=== PATIENT | male | born 1935 | race Caucasian/White ===

== ENCOUNTER 2016-04-10 08:41 | Inpatient (IN) | payer MEDICARE ==
[2016-04-10 08:54] VITALS: BMI 30.8
--- NOTE | 2016-04-10 09:07 | EDPRACDOC ---
<Rocky Reed - Last Filed: 04/10/16 12:13> - General Information Information Source: Patient - History of Present Illness Onset: 2 days HPI: PT COMPLAINS OF BRBPR X 3 DAYS, "SORENESS" LEFT SIDE OF ABDOMEN, DIARRHEA, NO FEVER OR CHILLS, NO N/V/D, NO CP OR SOBR, PT STATES HE HAD DIVERTICULITIS A COUPLE OF YEARS AGO BUT THAT WAS MORE PAINFUL THAN HIS CURRENT SYMPTOMS. Bleeding Duration: Reports: Intermittent Bleeding Description: Reports: Spontaneous Recent Use Of: Reports: None Relevant History: Reports: None Prehospital Care: Reports: None Pain Severity: Mild Amount of Blood: Reports: Cups Vomitus: Reports: None Stools: Reports: Bright Red Blood, Blood on Tissue Paper Associated Signs and Symptoms: Reports: Abdominal Pain, Diarrhea <Silas Mederos - Last Filed: 04/10/16 12:16> - General Information Chief Complaint: Bleeding (Rectal &/or other) Stated Complaint: RECTAL BLEEDING Time Seen by Provider: 04/10/16 08:56 Home Medications: Home Medications Allopurinol 300 mg PO DAILY 07/11/14 Aspirin (OrangeEnteric Coated) [Ecotrin] 325 mg PO DAILY 07/11/14 Docosahexanoic Acid/Epa [Fish Oil Softgel] 1 cap PO DAILY 07/11/14 Losartan Potassium [Cozaar] 25 mg PO BID 07/11/14 Multivitamin [Multivitamins] 1 cap PO DAILY 07/11/14 Psyllium [Metamucil] 1 each PO DAILY 07/11/14 Simvastatin [Zocor] 20 mg PO DAILY 07/11/14 Omeprazole [Prilosec] 20 mg PO DAILY 07/14/15 Hypromellose/Pf [Retaine Hpmc 0.3% Eye Drops] 1 drop OU DAILY 04/10/16 Mineral Oil/Petrolatum,White [Retaine Pm Eye Ointment] 1 applic OU QHS 04/10/16 Allergies/Adverse Reactions: Allergies Allergy/AdvReac Type Severity Reaction Status Date / Time lisinopril Allergy Severe Angioedema* Verified 04/10/16 08:53 ED Past Medical History - History Reviewed Yes Nurses notes reviewed and agree except as marked - Patient Medical History Cardiac History: Reports: Hypertension, Hypercholesterolemia Respiratory History: Reports: COPD GI/ History: Reports: Kidney Stones (in twenties) Musculoskeletal History: Reports: Arthritis (knees) Psychological History: Denies: Depression Systemic History: Reports: Cancer (SKIN)Comment Only: Diabetes ("borderline") - Family Medical History Reports: Hypertension (Mother and Father), Stroke (Father), Cardiac Disorders ( Mother). Denies: Diabetes, Cancer - Social Medical History Smoking Status: Former smoker ETOH: None Substance Abuse: None <Silas Mederos - Last Filed: 04/10/16 12:16> EDM Review of Systems - Review of Systems Constitutional: negative: Chills, Fever, Fatigue, Weakness Eyes: negative: Blurred Vision, Double Vision Ears: negative: Drainage Throat: negative: Pain Nose: negative: Congestion, Discharge Respiratory: negative: Cough, Shortness of Breath, Wheezing Cardiovascular: negative: Chest Pain, Palpitations Gastrointestinal: Diarrhea, Pain, Other (BRBPR). negative: Nausea, Vomiting Genitourinary: negative: Dysuria, Frequency Neurological: negative: Dizziness, Headache, Numbness, Weakness Musculoskeletal: No Symptoms Reported Integumentary: No Symptoms Reported <Silas Mederos - Last Filed: 04/10/16 12:16> - Physical Exam Last recorded Vital Signs: Last Vital Signs Temp 98.4 F 04/10/16 12:08 Pulse 60 04/10/16 12:08 Resp 18 04/10/16 12:08 BP 143/74 04/10/16 12:08 Pulse Ox 96 04/10/16 12:08 Oxygen Pulse Oxygen Saturation 96 O2 Device Room Air Oxygen Flow Rate Fraction of Inspired Oxygen ( FIO2) <Rocky Reed - Last Filed: 04/10/16 12:13> - Physical Exam Constitutional: Alert (Awake), No apparent distress Oriented to: Time, Person, Place Last recorded Vital Signs: Last Vital Signs Temp 98.2 F 04/10/16 08:50 Pulse 84 04/10/16 08:50 Resp 20 04/10/16 08:50 BP 185/86 H 04/10/16 08:51 Pulse Ox 95 04/10/16 08:50 Oxygen Pulse Oxygen Saturation 95 O2 Device Room Air Oxygen Flow Rate Fraction of Inspired Oxygen ( FIO2) - HEENT Head: Normal ( normocephalic) Eye Exam: Normal (PERRL, EOMI, Sclera white) Oropharynx: Normal (Pharynx:Moist without exudate,Gums-no swelling) Tympanic Membrane: Normal ENT EAC: Normal TMJ: Normal Nose: No Symptoms Reported (septum midline) Neck: Normal (FROM, trachea at midline) - Respiratory/Cardiovascular Respiratory: Normal - CTA (BBS clear to auscultation without adventitious sounds ) Cardiovascular: Normal (RRR without murmur, gallop or rub) - GI Auscultation: Normal (NABS) Palpation: Normal (Soft,No rebound or guarding, non distended) Tenderness: Mild, LLQ. negative: Guarding, Rebound, Rigidity Felton's Sign: Negative Rectal Exam: Blood, Heme positive stool, Rectal Tone Stool: Gross Blood (MAROON STOOL) - Musculoskeletal Back: Normal (Non-Tender) Extremities: Normal (Normal tone, Pulses 2+ No cyanosis or edema, FROM) - Integumentary Skin: Normal, Warm, Dry Lymphatics: Normal (no adenopathy) - Neurologic Memory Impaired: Normal Motor Function: Normal (Normal tone, Pulses 2+ No cyanosis or edema, FROM) Cranial Nerve: Normal (CN II-X11 intact sensation, strength 5/5) Cerebellar: Normal Mood Description: Normal Perception: Normal <Silas Mederos - Last Filed: 04/10/16 12:16> - Results 04/10/16 09:08 04/10/16 09:08 WBC 9.6 xk/uL (3.8-10.8) 04/10/16 09:08 RBC 3.49 xM/uL (4.70-6.10) L 04/10/16 09:08 Hgb 10.8 g/dL (14.0-18.0) L 04/10/16 09:08 Hct 32.2 % (42-52) L 04/10/16 09:08 MCV 92 fL (80-94) 04/10/16 09:08 MCH 30.9 pg (27-32) 04/10/16 09:08 MCHC 33.5 g/dl (33-36) 04/10/16 09:08 RDW 13.7 % (11.5-14.5) 04/10/16 09:08 Plt Count 210 xk/uL (130-400) 04/10/16 09:08 MPV 7.1 fL (7.4-10.4) L 04/10/16 09:08 Neut % (Auto) 68.1 % (45-76) 04/10/16 09:08 Lymph % (Auto) 20.3 % (17-44) 04/10/16 09:08 [place] % (Auto) 8.6 % (3-10) 04/10/16 09:08 Eos % (Auto) 2.7 % (0-5) 04/10/16 09:08 Baso % (Auto) 0.3 % (0-2) 04/10/16 09:08 Absolute Neuts (auto) 6.53 xk/uL (1.7-8.2) 04/10/16 09:08 Absolute Lymphs (auto) 1.92 xk/uL (0.65-4.75) 04/10/16 09:08 PT 11.7 SEC (9.2-11.2) H 04/10/16 09:08 INR 1.1 04/10/16 09:08 APTT 26.2 SEC (22-35) 04/10/16 09:08 Sodium 141 mEq/L (137-146) 04/10/16 09:08 Potassium 3.9 mEq/L (3.5-5.1) 04/10/16 09:08 Chloride 106 mEq/L (98-107) 04/10/16 09:08 Carbon Dioxide 26 mMOL/L (22-33) 04/10/16 09:08 Anion Gap 13 mEq/L (8-16) 04/10/16 09:08 BUN 18 MG/DL (9-20) 04/10/16 09:08 Creatinine 0.90 MG/DL (0.66-1.25) 04/10/16 09:08 Estimated GFR (MDRD) > 60 mL/min (>=60) 04/10/16 09:08 Glucose 95 MG/DL (70-99) 04/10/16 09:08 Calculated Osmolality 273 MOs/Kg (270-290) 04/10/16 09:08 Calcium 9.0 MG/DL (8.4-10.2) 04/10/16 09:08 Corrected Calcium 9.4 MG/DL (8.4-10.2) 04/10/16 09:08 Total Bilirubin 0.5 MG/DL (0.2-1.3) 04/10/16 09:08 AST 24 IU/L (17-59) 04/10/16 09:08 ALT 30 IU/L (21-72) 04/10/16 09:08 Alkaline Phosphatase 75 IU/L (50-160) 04/10/16 09:08 Total Protein 6.4 G/DL (6.3-8.2) 04/10/16 09:08 Albumin 3.6 G/DL (3.5-5.0) 04/10/16 09:08 Lab Results 04/10/16 04/10/16 04/10/16 09:08 09:08 09:08 WBC 9.6 RBC 3.49 L Hgb 10.8 L Hct 32.2 L MCV 92 MCH 30.9 MCHC 33.5 RDW 13.7 Plt Count 210 MPV 7.1 L Neut % (Auto) 68.1 Lymph % (Auto) 20.3 [place] % (Auto) 8.6 Eos % (Auto) 2.7 Baso % (Auto) 0.3 Absolute Neuts (auto) 6.53 Absolute Lymphs (auto) 1.92 PT 11.7 H INR 1.1 APTT 26.2 Sodium 141 Potassium 3.9 Chloride 106 Carbon Dioxide 26 Anion Gap 13 BUN 18 Creatinine 0.90 Estimated GFR (MDRD) > 60 Glucose 95 Calculated Osmolality 273 Calcium 9.0 Corrected Calcium 9.4 Total Bilirubin 0.5 AST 24 ALT 30 Alkaline Phosphatase 75 Total Protein 6.4 Albumin 3.6 <Rocky Reed - Last Filed: 04/10/16 12:13> - Differential Diagnosis Diverticulosis, Esophagitis, Gastritis, Gastroenteritis, Inflammatory Bowel Dx - Re-evaluation Re-evaluation 1 Re-evaluation Time: 11:55 (UP AND AMBULATORY W/O DIFFICULTY) - Results 04/10/16 09:08 04/10/16 09:08 - Diagnostic Imaging CT ABD/PELVIS Image interpreted by: Radiologist CT ABDOMEN AND PELVIS WITH CONTRAST TECHNIQUE: Multidetector CT imaging of the abdomen and pelvis was performed using the standard protocol following bolus administration of intravenous contrast. CONTRAST: 80 mL Isovue 370 COMPARISON: 06/12/2014 FINDINGS: No consolidation or effusion in the visualized lung bases. The calcified granulomata are again seen in the spleen. The liver, gallbladder, adrenal glands, and pancreas are unremarkable. Subcentimeter hypodensity in the upper pole of the right kidney is unchanged and too small to characterize. Punctate nonobstructing left upper pole renal calculi are unchanged. There is no evidence of bowel obstruction. The appendix is unremarkable. Extensive diverticulosis is again seen involving the sigmoid and descending colon. Wall thickening involving the proximal sigmoid colon has increased from the prior study. Projecting posteroinferiorly from the proximal sigmoid colon is an inflamed diverticulum or contained perforation which is inseparable from the adjacent bladder dome and measures 2 cm in size. There is mild adjacent bladder wall thickening. This diverticulum was gas-filled on the prior study and also appeared adherent to the bladder wall but without significant inflammatory change. No gas is present in the bladder to clearly indicate a fistulous communication with the bladder lumen. Advanced atherosclerotic calcification is noted of the abdominal aorta and its major branch vessels. A circumaortic left renal vein is incidentally noted. No free fluid is seen. Chronic, mild enlargement of lymph nodes in the sigmoid mesial colon is again noted, measuring up to 7 mm in short axis. Advanced disc degeneration is present in the lower lumbar spine. IMPRESSION: 1. Sigmoid diverticulitis with an inflamed diverticulum or small contained perforation directly involving the bladder wall. 2. Nonobstructing left nephrolithiasis. - Additional Information DISCUSSED WITH DR REED, HE WILL SEE PT, DISCUSS WITH SURGERY <Silas Mederos - Last Filed: 04/10/16 12:16> - Departure Yes I personally saw and evaluated the patient. Disposition: Admit IP To This Hospital Education/Counseling Given To: Patient Education/Counseling Given Regarding: Diagnosis, Treatment, Prognosis Decision to Admit Time: 12:14 Decision to admit date: 04/10/16 Decision to admit: from ED - Physician Consulted Surgery Time Called: 12:14 Provider Called: Samuel Rodriguez Time Cath Lab Nurse Returned Call: 12:14 <Rocky Reed - Last Filed: 04/10/16 12:13> <Silas Mederos - Last Filed: 04/10/16 12:16> - Departure Condition: Stable Final Diagnosis: Acute diverticulitis, Perforated viscus Referrals: Glenn Moran MD [Primary Care Provider] - One Week
[2016-04-10] MEDS ORDERED: SODIUM CHLORIDE 0.9% 10 ML FLUSH FLUSH PRN (09:08)
[2016-04-10 09:22] LABS: AUTOMATED BASOPHIL 0.3 % (0-2); AUTOMATED EOSINOPHIL 2.7 % (0-5); AUTOMATED LYMPH 20.3 % (17-44); AUTOMATED MONOCYTE 8.6 % (3-10); AUTOMATED NEUTROPHIL 68.1 % (45-76); MPV 7.1 fL (7.4-10.4)
[2016-04-10 09:32] LABS: PARTIAL THROMB. TIME 26.2 SEC (22-35); PT-INR 1.1
[2016-04-10 09:36] LABS: BLOOD UREA NITROGEN 18 MG/DL (9-20); CALC CORRECTED 9.4 MG/DL (8.4-10.2); CALCULATED OSMOLALITY 273 MOs/Kg (270-290); CHLORIDE 106 mEq/L (98-107); GLUCOSE 95 MG/DL (70-99); SODIUM LEVEL 141 mEq/L (137-146); TOTAL PROTEIN 6.4 G/DL (6.3-8.2)
[2016-04-10] MEDS ORDERED: Pharmacy Review for Metformin - IV Contrast Given SCH (10:00)
--- NOTE | 2016-04-10 11:57 | DIRPT ---
CLINICAL DATA: Left lower quadrant abdominal pain and rectal bleeding for 2 days. EXAM: CT ABDOMEN AND PELVIS WITH CONTRAST TECHNIQUE: Multidetector CT imaging of the abdomen and pelvis was performed using the standard protocol following bolus administration of intravenous contrast. CONTRAST: 80 mL Isovue 370 COMPARISON: 06/12/2014 FINDINGS: No consolidation or effusion in the visualized lung bases. The calcified granulomata are again seen in the spleen. The liver, gallbladder, adrenal glands, and pancreas are unremarkable. Subcentimeter hypodensity in the upper pole of the right kidney is unchanged and too small to characterize. Punctate nonobstructing left upper pole renal calculi are unchanged. There is no evidence of bowel obstruction. The appendix is unremarkable. Extensive diverticulosis is again seen involving the sigmoid and descending colon. Wall thickening involving the proximal sigmoid colon has increased from the prior study. Projecting posteroinferiorly from the proximal sigmoid colon is an inflamed diverticulum or contained perforation which is inseparable from the adjacent bladder dome and measures 2 cm in size. There is mild adjacent bladder wall thickening. This diverticulum was gas-filled on the prior study and also appeared adherent to the bladder wall but without significant inflammatory change. No gas is present in the bladder to clearly indicate a fistulous communication with the bladder lumen. Advanced atherosclerotic calcification is noted of the abdominal aorta and its major branch vessels. A circumaortic left renal vein is incidentally noted. No free fluid is seen. Chronic, mild enlargement of lymph nodes in the sigmoid mesial colon is again noted, measuring up to 7 mm in short axis. Advanced disc degeneration is present in the lower lumbar spine. IMPRESSION: 1. Sigmoid diverticulitis with an inflamed diverticulum or small contained perforation directly involving the bladder wall. 2. Nonobstructing left nephrolithiasis. Electronically Signed By: Vasu Mederos M.D. On: 04/10/2016 11:55
[2016-04-10] MEDS ORDERED: Metronidazole 500 mg/100 ml 500 MG/100 ML RTU IV ONE (12:05)
[2016-04-10] MEDS ORDERED: Levofloxacin 500 mg/100 ml D5W 500 MG/100 ML RTU IV ONE (12:05)
[2016-04-10] MEDS ORDERED: ACETAMINOPHEN 325 MG/TAB TABLET PO PRN (12:49)
[2016-04-10] MEDS ORDERED: ONDANSETRON HCL 4 MG/2 ML VIAL IV PRN (12:49)
[2016-04-10] MEDS ORDERED: SIMETHICONE 80 MG TAB PO PRN (12:49)
[2016-04-10] MEDS ORDERED: HYDROmorphone 1 MG INJECTION IV PRN (12:49)
[2016-04-10] MEDS ORDERED: NS 1,000 ML IV ONE (12:52)
[2016-04-10] MEDS ORDERED: Enoxaparin 0.5 mg per kg per dose SQ SCH (13:00)
--- NOTE | 2016-04-10 13:13 | HISTPHYS ---
- Chief Complaint LLQ Pain - History of Present Illness 80 YO WM with LLQ pain 8/10. Has history of diverticular disease. Presents with diverticulitis with small abscess. Pain is sharp and localized. No alleviating factors. No fevers or chest pain. Some urinary retention but no GI Bleeding or N /V. - Medical History Cardiac History: Reports: Hypertension, Hypercholesterolemia Respiratory History: Reports: COPD GI/ History: Reports: Kidney Stones (in twenties) Musculoskeletal History: Reports: Arthritis (knees) Systemic History: Reports: Cancer (SKIN)Comment Only: Diabetes ("borderline") Psychological History: Denies: Depression - Medictions/Allergies Allergies lisinopril Allergy (Severe, Verified 04/10/16 08:53) Angioedema* Swelling of fingers Home Medications Allopurinol 300 mg PO DAILY 07/11/14 Aspirin (OrangeEnteric Coated) [Ecotrin] 325 mg PO DAILY 07/11/14 Docosahexanoic Acid/Epa [Fish Oil Softgel] 1 cap PO DAILY 07/11/14 Losartan Potassium [Cozaar] 25 mg PO BID 07/11/14 Multivitamin [Multivitamins] 1 cap PO DAILY 07/11/14 Psyllium [Metamucil] 1 each PO DAILY 07/11/14 Simvastatin [Zocor] 20 mg PO DAILY 07/11/14 Omeprazole [Prilosec] 20 mg PO DAILY 07/14/15 Hypromellose/Pf [Retaine Hpmc 0.3% Eye Drops] 1 drop OU DAILY 04/10/16 Mineral Oil/Petrolatum,White [Retaine Pm Eye Ointment] 1 applic OU QHS 04/10/16 - Family History Reports: Hypertension (Mother and Father), Stroke (Father), Cardiac Disorders ( Mother). Denies: Diabetes, Cancer - Social History Smoking Status: Former smoker - Review of Systems Constitutional: Loss of Appetite. negative: Chills, Fever, Weakness Eyes: negative: Double Vision, Pain, Photophobia Ears: negative: Hearing Loss, Tinnitus Nose: negative: Congestion, Ecchymosis Throat/Neck: negative: Pain, Masses, Hoarseness Respiratory: negative: Cough, Hemoptysis, Shortness of Breath Cardiovascular: negative: Chest Pain, Cyanosis, Palpitations Gastrointestinal: Abdominal Pain, Constipation. negative: Nausea, Vomiting Genitourinary: negative: Dysuria, Hematuria Neurological: negative: Dizziness, Headache, Seizure Musculoskeletal:: Gout. negative: Muscle Pain Integumentary: negative: Bruising, Itching Hematologic: negative: Easy Bruising, Easy Bleeding Psychiatric: negative: Anxiety, Depression - Physical Exam Vital Signs: Initial Vitals Temperature 98.2 F 04/10/16 08:50 Pulse Rate 84 04/10/16 08:50 Respiratory Rate 20 04/10/16 08:50 Pulse Oxygen Saturation 95 04/10/16 08:50 Constitutional: No apparent distress, Alert. negative: Agitated, Confused Oriented to: Time, Person, Place - HEENT Head: Normal. negative: Swelling, Tender Nose: negative: Discharge, Deformity Respiratory: negative: Rales, Rhonchi, Stridor - GI Auscultation: negative: Bruit Palpation: negative: Enlarged liver, Enlarged spleen, Fluid Wave Tenderness: Guarding, LLQ. negative: Rebound Felton's Sign: Negative - Musculoskeletal Back: negative: Ecchymosis, CVA Tenderness Extremities: negative: Clubbing, Cyanosis, Edema - Integumentary Skin: Normal, Warm, Dry Lymphatics: negative: Adenopathy, Inguinal Tenderness - Neurologic Motor Function: Normal (Motor 5/5 throughout.Normal tone, Pulses 2+ No cyanosis or edema, FROM) Cranial Nerve: Normal (CN II-XII intact sensation, strength 5/5) Mood Description: Normal, Appropriate. negative: Agitated Thought: Coherent. negative: Delusions - Lab Results Laboratory Results - last 24 hr 04/10/16 04/10/16 04/10/16 09:08 09:08 09:08 WBC 9.6 RBC 3.49 L Hgb 10.8 L Hct 32.2 L MCV 92 MCH 30.9 MCHC 33.5 RDW 13.7 Plt Count 210 MPV 7.1 L Neut % (Auto) 68.1 Lymph % (Auto) 20.3 [place] % (Auto) 8.6 Eos % (Auto) 2.7 Baso % (Auto) 0.3 Absolute Neuts (auto) 6.53 Absolute Lymphs (auto) 1.92 PT 11.7 H INR 1.1 APTT 26.2 Sodium 141 Potassium 3.9 Chloride 106 Carbon Dioxide 26 Anion Gap 13 BUN 18 Creatinine 0.90 Estimated GFR (MDRD) > 60 Glucose 95 Calculated Osmolality 273 Calcium 9.0 Corrected Calcium 9.4 Total Bilirubin 0.5 AST 24 ALT 30 Alkaline Phosphatase 75 Total Protein 6.4 Albumin 3.6 - Assessment/Plan (1) LLQ abdominal pain R10.32 - LEFT LOWER QUADRANT PAIN Acute Present on Admission: Yes (2) Diverticulitis of intestine with perforation and abscess K57.80 - DVTRCLI OF INTEST, PART UNSP, W PERF AND ABSCESS W/O BLEED Acute Present on Admission: Yes (3) Hypertension I10 - ESSENTIAL (PRIMARY) HYPERTENSION Chronic Present on Admission: Yes (4) GERD (gastroesophageal reflux disease) K21.9 - GASTRO-ESOPHAGEAL REFLUX DISEASE WITHOUT ESOPHAGITIS Chronic Present on Admission: Yes (5) Gout M10.9 - GOUT, UNSPECIFIED Chronic Present on Admission: Yes Plan: Will admit and start IV antibiotics and IVF. Ice chips for now. Recheck labs in AM. Medical consult for his medial issues ( gout, HTN). Straight cath PRN.
[2016-04-10] MEDS ORDERED: Docusate Sodium 100 MG CAP PO SCH (14:00)
[2016-04-10] MEDS: PIPERACILLIN AND TAZOBACTAM 3.375 GM in D5W 100 ML IV SCH ×2 (14:51→20:18)
[2016-04-10] MEDS: ALLOPURINOL 300 MG TAB PO SCH (15:36)
[2016-04-10] MEDS: IBUPROFEN INTRAVENOUS 800 MG in NS 250 ML IV SCH ×2 (15:45→20:56)
[2016-04-10] MEDS ORDERED: Vaccine Screening Complete SCH (16:00)
[2016-04-10] MEDS: ENOXAPARIN 40 MG/0.4 ML PFS SQ SCH (17:09)
[2016-04-10] MEDS: Metronidazole 500 mg/100 ml 500 MG/100 ML RTU IV SCH ×2 (17:09→23:22)
[2016-04-10] MEDS: Docusate Sodium 100 MG CAP PO SCH ×2 (17:09→21:57)
[2016-04-10] MEDS: LOSARTAN POTASSIUM 50 MG TAB PO SCH (21:58)
[2016-04-10] MEDS: PETROLATUM OPHTHALMIC LUBRICANT 3.5 GM TUBE OU SCH (22:01)
[2016-04-11] MEDS: IBUPROFEN INTRAVENOUS 800 MG in NS 250 ML IV SCH ×3 (02:28→07:53)
[2016-04-11] MEDS: PIPERACILLIN AND TAZOBACTAM 3.375 GM in D5W 100 ML IV SCH ×4 (02:29→19:48)
[2016-04-11] MEDS: Metronidazole 500 mg/100 ml 500 MG/100 ML RTU IV SCH ×4 (05:39→23:44)
[2016-04-11 07:12] LABS: AUTOMATED BASOPHIL 0.5 % (0-2); AUTOMATED EOSINOPHIL 2.9 % (0-5); AUTOMATED LYMPH 19.7 % (17-44); AUTOMATED MONOCYTE 8.9 % (3-10); MPV 7.5 fL (7.4-10.4)
[2016-04-11 07:23] LABS: BLOOD UREA NITROGEN 17 MG/DL (9-20); CALCIUM 8.8 MG/DL (8.4-10.2); CALCULATED OSMOLALITY 273 MOs/Kg (270-290); CHLORIDE 107 mEq/L (98-107); GLUCOSE 92 MG/DL (70-99); SODIUM LEVEL 141 mEq/L (137-146)
--- NOTE | 2016-04-11 07:35 | HIMCONSMED ---
Consultation Date: 04/10/16 Requesting Physician: Samuel Rodriguez Consulting Doctor: Kennedy Hernandez Consult Reason: Medical Management 80 years old white male presented to emergency room early on today for evaluation of crampy lower abdominal pain and fresh blood in the stool. Patient reports that over the past couple of years he had few episodes of fairly severe diverticulitis associated with fresh blood in the stool and fair amount of abdominal pain. He reports fairly severe episode about 2 months ago. Patient stays that he has initially notice fresh blood in the stool on Friday and he has attributed that to eating some red pepper jelly. He has subsequently developed crampy and stabbing pain in left lower quadrant and had a few more bowel movements mixed with fresh blood. He denies any nausea vomiting fevers or chills. Patient stays that early on today he had another bowel movement with significant amount of blood in the toilet and decided to be evaluated emergency room. ED workup was undertaken which showed acute sigmoid diverticulitis with inflamed diverticulum or small contained perforation directly involving the bladder wall. Patient is being admitted to surgical service of Dr. Cade medical consultation was phoned in for management of his other medical problems. Chief Complaint: LLQ Pain - Past Medical and Surgical History Cardiac History: Reports: Hypertension, Hypercholesterolemia, Valvular Heart Disease Respiratory History: Reports: COPD, Emphysema GI/ History: Reports: Kidney Stones (in twenties), Gastroesophageal Reflux, Diverticulosis, BPH Systemic History: Reports: Cancer (SKIN)Comment Only: Diabetes ("borderline") Musculoskeletal History: Reports: Arthritis (knees), Osteoarthritis Psychological History: Denies: Depression Neurological History: Reports: No Significant History Past Surgical History: Reports: Tonsillectomy, Other (Multiple skin cancers removal also vacal cord polyp remove) Allergies lisinopril Allergy (Severe, Verified 04/10/16 14:57) See Comments Swelling of fingers Home Medications Allopurinol 300 mg PO DAILY 07/11/14 Aspirin (OrangeEnteric Coated) [Ecotrin] 325 mg PO HS 07/11/14 Docosahexanoic Acid/Epa [Fish Oil Softgel] 1 cap PO HS 07/11/14 Losartan Potassium [Cozaar] 25 mg PO BID 07/11/14 Multivitamin [Multivitamins] 1 cap PO HS 07/11/14 Psyllium [Metamucil] 1 each PO DAILY 07/11/14 Simvastatin [Zocor] 20 mg PO .WITH SUPPER 07/11/14 Omeprazole [Prilosec] 20 mg PO DAILY 07/14/15 Hypromellose/Pf [Retaine Hpmc 0.3% Eye Drops] 1 drop OU .ALL DURING DAY PRN PRN 04/10/16 Mineral Oil/Petrolatum,White [Retaine Pm Eye Ointment] 1 applic OU QHS 04/10/16 - Social History Travel Outside of [place] in the Last 3 Months?: No Lives: With Family Smoking Status: Former smoker - Family History Reports: Hypertension (Mother and Father), Stroke (Father), Cardiac Disorders ( Mother). Denies: Diabetes, Cancer - Review of Systems Constitutional: Fever, Diaphoresis, Weakness, Weight loss Eyes: No Symptoms Reported Ears: No Symptoms Reported Nose: No Symptoms Reported Mouth: No Symptoms Reported Throat/Neck: No Symptoms Reported Respiratory: Sputum, Dyspnea Cardiovascular: No Symptoms Reported Gastrointestinal: Abdominal Pain, Diarrhea, Hematochezia, Heartburn Genitourinary: Nocturia Neurological: No Symptoms Reported Musculoskeletal:: Arthritis Integumentary: No Symptoms Reported Allergic/Immunologic: No Symptoms Reported Hematologic: No Symptoms Reported Endocrine: No Symptoms Reported Psychiatric: No Symptoms Reported - Physical Exam Vital Signs: Initial Vitals Temperature 98.2 F 04/10/16 08:50 Pulse Rate 84 04/10/16 08:50 Respiratory Rate 20 04/10/16 08:50 Pulse Oxygen Saturation 95 04/10/16 08:50 Constitutional: Alert Oriented to: Time, Person, Place - HEENT Head: Normal Eye: Normal Oropharynx: Normal ENT EAC: Normal TMJ: Normal Nose: No Symptoms Reported Respiratory: Diminished, Rhonchi Cardiovascular: Normal - GI Auscultation: Normal Palpation: Normal Tenderness: Moderate, LLQ, Suprapubic Rectal Exam: Deferred - Exam Deferred: Yes - Musculoskeletal Back: Normal Extremities: Cyanosis Spine: limited range of motion - Integumentary Skin: Normal, Warm, Dry Lymphatics: Normal - Neurologic Memory Impaired: Normal Motor Function: Normal Cranial Nerve: Normal Cerebellar: Normal Mood Description: Anxious Thought: Coherent Perception: Normal - Diagnostic Findings Allergies lisinopril Allergy (Severe, Verified 04/10/16 14:57) See Comments Swelling of fingers Initial Vitals Temperature 98.2 F 04/10/16 08:50 Pulse Rate 84 01/04/17 08:50 Respiratory Rate 20 04/10/16 08:50 Pulse Oxygen Saturation 95 04/10/16 08:50 04/11/16 06:15 04/11/16 06:15 Abnormal Lab Results 04/10/16 04/10/16 04/11/16 09:08 09:08 06:15 RBC 3.49 L 3.18 L Hgb 10.8 L 9.8 L Hct 32.2 L 29.3 L MPV 7.1 L PT 11.7 H Patient Name: LORIN EATON LOC: ED : 1935 AGE: 80 Order Date:04/10/16 Date of Service:07/22 Report # [id number] Ord Physician: Silas Mederos Exam # [id number] Emergency Physician: Rocky Reed DO Exam(s): [id number] CT/CT ABD-PELV W/IV CM CLINICAL DATA: Left lower quadrant abdominal pain and rectal bleeding for 2 days. EXAM: CT ABDOMEN AND PELVIS WITH CONTRAST TECHNIQUE: Multidetector CT imaging of the abdomen and pelvis was performed using the standard protocol following bolus administration of intravenous contrast. CONTRAST: 80 mL Isovue 370 COMPARISON: 06/12/2014 FINDINGS: No consolidation or effusion in the visualized lung bases. The calcified granulomata are again seen in the spleen. The liver, gallbladder, adrenal glands, and pancreas are unremarkable. Subcentimeter hypodensity in the upper pole of the right kidney is unchanged and too small to characterize. Punctate nonobstructing left upper pole renal calculi are unchanged. There is no evidence of bowel obstruction. The appendix is unremarkable. Extensive diverticulosis is again seen involving the sigmoid and descending colon. Wall thickening involving the proximal sigmoid colon has increased from the prior study. Projecting posteroinferiorly from the proximal sigmoid colon is an inflamed diverticulum or contained perforation which is inseparable from the adjacent bladder dome and measures 2 cm in size. There is mild adjacent bladder wall thickening. This diverticulum was gas-filled on the prior study and also appeared adherent to the bladder wall but without significant inflammatory change. No gas is present in the bladder to clearly indicate a fistulous communication with the bladder lumen. Advanced atherosclerotic calcification is noted of the abdominal aorta and its major branch vessels. A circumaortic left renal vein is incidentally noted. No free fluid is seen. Chronic, mild enlargement of lymph nodes in the sigmoid mesial colon is again noted, measuring up to 7 mm in short axis. Advanced disc degeneration is present in the lower lumbar spine. IMPRESSION: 1. Sigmoid diverticulitis with an inflamed diverticulum or small contained perforation directly involving the bladder wall. 2. Nonobstructing left nephrolithiasis. Electronically Signed By: Vasu Mederos M.D. On: 04/10/2016 11:55 - Assessment (1) Diverticulitis of intestine with perforation and abscess K57.80 - DVTRCLI OF INTEST, PART UNSP, W PERF AND ABSCESS W/O BLEED Acute Present on Admission: Yes Qualifiers: Diverticulitis site: large intestine Diverticulitis bleeding: with bleeding Qualified Code(s): K57.21 - Diverticulitis of large intestine with perforation and abscess with bleeding Patient will be admitted to general medical floor. Broad-spectrum antibiotics in the form of Levaquin and Flagyl will be provided.. Will monitor abdominal symptoms. And decision regarding surgical intervention will be made by Dr. Cade. (2) GERD (gastroesophageal reflux disease) K21.9 - GASTRO-ESOPHAGEAL REFLUX DISEASE WITHOUT ESOPHAGITIS Chronic Present on Admission: Yes Qualifiers: Esophagitis presence: without esophagitis Qualified Code(s): K21.9 - Gastro -esophageal reflux disease without esophagitis Continue PPI (3) Hypertension I10 - ESSENTIAL (PRIMARY) HYPERTENSION Chronic Present on Admission: Yes Qualifiers: Hypertension type: essential hypertension Qualified Code(s): I10 - Essential (primary) hypertension Stable on home meds (4) Anemia D64.9 - ANEMIA, UNSPECIFIED Acute Qualifiers: Anemia type: unspecified type Qualified Code(s): D64.9 - Anemia, unspecified Monitor counts transfuse as needed and indicated (5) LLQ abdominal pain R10.32 - LEFT LOWER QUADRANT PAIN Acute Present on Admission: Yes Continue analgesics on as needed basis (6) Gout M10.9 - GOUT, UNSPECIFIED Chronic Present on Admission: Yes Qualifiers: Gout site: unspecified site Gout etiology: unspecified cause Chronicity: unspecified Qualified Code(s): M10.9 - Gout, unspecified Stable with no recent gouty attacks (7) Dyslipidemia E78.5 - HYPERLIPIDEMIA, UNSPECIFIED Chronic Present on Admission: Yes Continue Zocor and fish oil (8) Chronic respiratory failure J96.10 - CHRONIC RESPIRATORY FAILURE, UNSP W HYPOXIA OR HYPERCAPNIA Chronic Present on Admission: Yes Qualifiers: Respiratory failure complication: hypoxia Qualified Code(s): J96.11 - Chronic respiratory failure with hypoxia Monitor pulmonary status. Continue incentive spirometer Case Care Discussed with: Patient, Consultants, Family, Nursing Staff Total Time: 55 min . Critical Care: No Code: 22206
[2016-04-11] MEDS: ALLOPURINOL 300 MG TAB PO SCH (07:51)
[2016-04-11] MEDS: LOSARTAN POTASSIUM 50 MG TAB PO SCH ×2 (07:51→21:29)
[2016-04-11] MEDS: Docusate Sodium 100 MG CAP PO SCH ×2 (07:52→21:15)
[2016-04-11] MEDS: Aspirin (Orange Enteric Coated) 325 mg tab PO SCH (07:52)
[2016-04-11] MEDS: ARTIFICIAL TEARS OPH SOLN 15 ML OU SCH (07:52)
--- NOTE | 2016-04-11 08:22 | PCM.SURGRO ---
- Subjective Patient: Reports: No new complaints, Feels better, Pain is less - Objective / Physical Exam Vital Signs: Temperature: 98.3 F (04/11/16 06:00) HR: 66 (04/11/16 06:00)RR: 18 (04/11/16 06: 00) BP: 129/64 (04/11/16 06:00)Pulse Ox: 94 (04/11/16 06:00) General: Alert, Oriented x3, Cooperative HEENT: Normal Respiratory: Normal - CTA. negative: Rales, Rhonchi Cardiovascular: Regular rate and rhythm, No Gallops,Rubs/Murmurs Gastrointestinal: Soft, Tender (mildly). negative: Distended Extremities: negative: Tenderness, Swelling, Edema Neurological: Normal speech. negative: Drowsy, Somnolent Skin: Warm,Dry and Intact, No rashes Laboratory/Diagnostics Reviewed: 04/11/16 06:15 04/11/16 06:15 Laboratory Results - last 24 hr 04/11/16 04/11/16 06:15 06:15 WBC 7.2 RBC 3.18 L Hgb 9.8 L Hct 29.3 L MCV 92 MCH 30.9 MCHC 33.5 RDW 13.8 Plt Count 182 MPV 7.5 Neut % (Auto) 68.0 Lymph % (Auto) 19.7 Sac % (Auto) 8.9 Eos % (Auto) 2.9 Baso % (Auto) 0.5 Absolute Neuts (auto) 4.90 Absolute Lymphs (auto) 1.37 Sodium 141 Potassium 4.2 Chloride 107 Carbon Dioxide 27 Anion Gap 11 BUN 17 Creatinine 1.10 Estimated GFR (MDRD) > 60 Glucose 92 Calculated Osmolality 273 Calcium 8.8 - Assessment and Plan (1) LLQ abdominal pain Acute R10.32 - LEFT LOWER QUADRANT PAIN Present on Admission: Yes (2) Diverticulitis of intestine with perforation and abscess Acute K57.80 - DVTRCLI OF INTEST, PART UNSP, W PERF AND ABSCESS W/O BLEED Present on Admission: Yes (3) Hypertension Chronic I10 - ESSENTIAL (PRIMARY) HYPERTENSION Present on Admission: Yes (4) GERD (gastroesophageal reflux disease) Chronic K21.9 - GASTRO-ESOPHAGEAL REFLUX DISEASE WITHOUT ESOPHAGITIS Present on Admission: Yes (5) Gout Chronic M10.9 - GOUT, UNSPECIFIED Present on Admission: Yes Plan: Will try clear liquids. Continue with IV antibiotics. OOB and ambulate.
[2016-04-11] MEDS ORDERED: HYPROMELLOSE OU SCH (09:00)
--- NOTE | 2016-04-11 14:24 | GENMEDPROG ---
Subjective Note: Patient bed responsive follows commands, still occasional crampy abdominal pain but denies any further hematochezia. Tolerated liquid diet, denies any nausea vomiting. Ambulating down the hallways. Notes Reviewed: Yes Events from last night noted and discussed with Clinical Staff Current Medication List: Reviewed Currently: Reports: MAJOR, Tobacco Use/Hx, Reflux Sx DVT Prophylaxis: Yes - Physical Examination Vital Signs and I&O: Last Vital Signs Temp 98.3 F 04/11/16 06:00 Pulse 66 04/11/16 06:00 Resp 18 04/11/16 06:00 BP 129/64 04/11/16 06:00 Pulse Ox 94 04/11/16 06:00 Oxygen Pulse Oxygen Saturation 94 O2 Device Room Air Oxygen Flow Rate Fraction of Inspired Oxygen ( FIO2) Intake & Output 04/08/16 04/09/16 04/10/16 04/11/16 23:59 23:59 23:59 23:59 Intake Total 1183 501 Output Total 450 750 Balance 733 -249 Patient's weight 87.288 kg General: Alert, Oriented x3, Cooperative, No acute distress HEENT: Normal, PERRLA, EOMI, Anicteric Sclera Neck: Non-tender, Normal Trachea alignment, Limited range of motion Lymphatics: Normal Respiratory: Diminished, Rhonchi Cardiovascular: Regular rate, Normal S1, Normal S2, Murmurs GI: Soft, Tenderness. negative: Rebound, Guarding Extremities/Musculoskeletal: Edema, DJD Skin: Warm,Dry and Intact, No rashes, No breakdown Neurological: Normal tone, Cranial nerves 3-12 NL Psych/Mental Status: Appropriate Lab/DI/Studies Reviewed: Allergies lisinopril Allergy (Severe, Verified 04/10/16 14:57) See Comments Swelling of fingers 04/11/16 06:15 04/11/16 06:15 Last Vital Signs Temp 98.3 F 04/11/16 06:00 Pulse 66 04/11/16 06:00 Resp 18 04/11/16 06:00 BP 129/64 04/11/16 06:00 Pulse Ox 94 04/11/16 06:00 - Assessment (1) Diverticulitis of intestine with perforation and abscess Acute K57.80 - DVTRCLI OF INTEST, PART UNSP, W PERF AND ABSCESS W/O BLEED Qualifiers: Diverticulitis site: large intestine Diverticulitis bleeding: with bleeding Qualified Code(s): K57.21 - Diverticulitis of large intestine with perforation and abscess with bleeding Comment/Plan: Continue IV antibiotics, IV fluids and PPI. Monitor clinically (2) GERD (gastroesophageal reflux disease) Chronic K21.9 - GASTRO-ESOPHAGEAL REFLUX DISEASE WITHOUT ESOPHAGITIS Qualifiers: Esophagitis presence: without esophagitis Qualified Code(s): K21.9 - Gastro -esophageal reflux disease without esophagitis Comment/Plan: Continue PPI (3) Hypertension Chronic I10 - ESSENTIAL (PRIMARY) HYPERTENSION Qualifiers: Hypertension type: essential hypertension Qualified Code(s): I10 - Essential (primary) hypertension Comment/Plan: Stable on home meds, BP under good control (4) Anemia Acute D64.9 - ANEMIA, UNSPECIFIED Qualifiers: Anemia type: unspecified type Qualified Code(s): D64.9 - Anemia, unspecified Comment/Plan: Monitor counts transfuse as needed and indicated. Partially hemodilutional. (5) LLQ abdominal pain Acute R10.32 - LEFT LOWER QUADRANT PAIN Comment/Plan: Continue analgesics on as needed basis (6) Gout Chronic M10.9 - GOUT, UNSPECIFIED Qualifiers: Gout site: unspecified site Gout etiology: unspecified cause Chronicity: unspecified Qualified Code(s): M10.9 - Gout, unspecified Comment/Plan: Stable with no recent gouty attacks (7) Dyslipidemia Chronic E78.5 - HYPERLIPIDEMIA, UNSPECIFIED Comment/Plan: Continue Zocor and fish oil (8) Chronic respiratory failure Chronic J96.10 - CHRONIC RESPIRATORY FAILURE, UNSP W HYPOXIA OR HYPERCAPNIA Qualifiers: Respiratory failure complication: hypoxia Qualified Code(s): J96.11 - Chronic respiratory failure with hypoxia Comment/Plan: Monitor pulmonary status. Continue incentive spirometer Case Care Discussed with: Patient, Consultants, Family, Nursing Staff, Personal Lines Underwriter Education/Counseling Given To: Patient Education/Counseling Given Regarding: Diagnosis, Treatment, Prognosis, Follow Up Total Time: 45 min . Critical Care: No Code: 85607 (12+)
[2016-04-11 14:47] LABS: AUTOMATED BASOPHIL 0.5 % (0-2); AUTOMATED EOSINOPHIL 2.4 % (0-5); AUTOMATED MONOCYTE 7.5 % (3-10); AUTOMATED NEUTROPHIL 72.6 % (45-76); MPV 7.2 fL (7.4-10.4)
[2016-04-11] MEDS: ENOXAPARIN 40 MG/0.4 ML PFS SQ SCH (17:46)
[2016-04-11] MEDS ORDERED: PROBIOTIC BLEND TAB PO SCH (18:00)
[2016-04-11] MEDS: PETROLATUM OPHTHALMIC LUBRICANT 3.5 GM TUBE OU SCH (21:17)
[2016-04-12] MEDS: PIPERACILLIN AND TAZOBACTAM 3.375 GM in D5W 100 ML IV SCH ×2 (02:28→07:54)
[2016-04-12 04:54] VITALS: BP 116/53; PULSE 66; TEMP 98.2
[2016-04-12] MEDS: Metronidazole 500 mg/100 ml 500 MG/100 ML RTU IV SCH (05:38)
[2016-04-12] MEDS ORDERED: PANTOPRAZOLE 40 MG TAB PO SCH (06:00)
[2016-04-12] MEDS: ARTIFICIAL TEARS OPH SOLN 15 ML OU SCH (07:52)
[2016-04-12] MEDS: Docusate Sodium 100 MG CAP PO SCH (07:53)
[2016-04-12] MEDS: LOSARTAN POTASSIUM 50 MG TAB PO SCH (07:53)
[2016-04-12] MEDS: Aspirin (Orange Enteric Coated) 325 mg tab PO SCH (07:53)
[2016-04-12] MEDS: ALLOPURINOL 300 MG TAB PO SCH (07:54)
--- NOTE | 2016-04-12 09:56 | PCM.DCS92 ---
- Final/Secondary Discharge Diagnosis (1) LLQ abdominal pain Resolved R10.32 - LEFT LOWER QUADRANT PAIN Present on Admission: Yes (2) Diverticulitis of intestine with perforation and abscess Acute K57.80 - DVTRCLI OF INTEST, PART UNSP, W PERF AND ABSCESS W/O BLEED Present on Admission: Yes large intestine with bleeding K57.21 - Diverticulitis of large intestine with perforation and abscess with bleeding (3) Hypertension Chronic I10 - ESSENTIAL (PRIMARY) HYPERTENSION Present on Admission: Yes essential hypertension I10 - Essential (primary) hypertension (4) GERD (gastroesophageal reflux disease) Chronic K21.9 - GASTRO-ESOPHAGEAL REFLUX DISEASE WITHOUT ESOPHAGITIS Present on Admission: Yes without esophagitis K21.9 - Gastro-esophageal reflux disease without esophagitis (5) Gout Chronic M10.9 - GOUT, UNSPECIFIED Present on Admission: Yes unspecified site unspecified cause unspecified M10.9 - Gout, unspecified Discharge Disposition: Home Discharge Condition: Stable Cognitive Discharge Status: Unimpaired Fuctional Discharge Status: Independent Physician Follow up/Referrals: Glenn Moran MD [Primary Care Provider] - Call for Appointment Samuel Rodriguez MD [Staff Physician] - Keep Scheduled Appt (f/u on Fri04/22/2016 @ 2:30 PM [address] [facility] [phone]) Additional Instructions: stool softener daily. Diet at Discharge: Low Residue Activity: As Tolerated - DC Summary Notes Hospital Course Note:: Discharge summary on patient named LORIN EATON admitted to [facility] on 04/10/16 by Samuel Rodriguez MD. Date of discharge is []. Patent was admitted with diverticulitis with small contained perforation and abscess. He was placed on IV antibiotics and symptoms resolved quickly. He will be discharged home to be followed up as outpatient. Will be on Levaquin and Flagyl for the next 10 days. Will need GI follow up as well and f/u CT in 2-3 weeks. Stable. Remain on low residue diet. - Physical Exam Vital Signs: Initial Vitals Temperature 98.2 F 04/10/16 08:50 Pulse Rate 84 04/10/16 08:50 Respiratory Rate 20 04/10/16 08:50 Pulse Oxygen Saturation 95 04/10/16 08:50 Constitutional: No apparent distress Oriented to: Time, Person, Place Respiratory: Normal - CTA Cardiovascular: Normal - GI Palpation: Normal Tenderness: Non tender
== END 2016-04-12 11:38 | disposition home or self-care (01) | DRG 378 ==
LOC: ED 08:41 → MPS3 12:48
PROVIDERS: ADMIT Surgery; ATTEND Surgery
DX: K57.21 Diverticulitis of large intestine with perforation and abscess with bleeding (principal); J96.11 Chronic respiratory failure with hypoxia; J44.9 Chronic obstructive pulmonary disease, unspecified; I10 Essential (primary) hypertension; K21.9 Gastro-esophageal reflux disease without esophagitis; M10.9 Gout, unspecified; E78.00 Pure hypercholesterolemia, unspecified; M19.90 Unspecified osteoarthritis, unspecified site; Z85.828 Personal history of other malignant neoplasm of skin; Z79.899 Other long term (current) drug therapy; Z79.82 Long term (current) use of aspirin; I51.9 Heart disease, unspecified; Z87.891 Personal history of nicotine dependence; D64.9 Anemia, unspecified; E78.5 Hyperlipidemia, unspecified
CPT/HCPCS: 36415; 74177; 80048; 80053; 85025; 85610; 85730; 96365; 96372; 96375; 99284; A9698; J1650; J1741; J1956; J2405; J2543; J3490; J7050; J7060